=== PATIENT | female | born 1940 | race Caucasian/White ===

== ENCOUNTER 2018-07-10 12:58 | Observation (INO) ==
[2018-07-10 13:35] LABS: Basophils # 0.1 10*3/uL (0.0-0.2); Basophils % 0.7 % (0.0-0.8); Eosinophils # 0.1 10*3/uL (0.0-0.87); Eosinophils % 0.4 % (0.00-10.9); Hematocrit 42.2 VOL% (35.7-47.0); Immature Granulocytes % 0.3 %; Immature Granulocytes Absolute 0.04 #; Lymphocytes # 3.4 10*3/uL (1.4-4.0); Lymphocytes % 29.3 % (21.3-54.2); Mean Corpuscular HGB Conc 33.2 GM/DL (32-36); Mean Corpuscular Hemoglobin 30 PG (27-34); Mean Corpuscular Volume 91.7 FL (87-102); Monocytes # 1.3 10*3/uL (0.11-0.8); Monocytes % 11.1 % (1.7-12.7); Neutrophils # 6.8 10*3/uL (1.4-7.4); Neutrophils % 58.2 % (38.7-73.9); Platelet Count 422 T/CUMM (130-400); Red Cell Distribution Width 13.6 % (9.3-17.3); White Blood Count 11.7 T/CUMM (4-12)
[2018-07-10 13:48] LABS: INR 0.9
[2018-07-10 13:51] LABS: Albumin 3.7 G/DL (3.4-5.0); Bilirubin,Total 0.4 MG/DL (0.2-1.0); Calcium 9.2 MG/DL (8.5-10.1); Potassium 4.1 MMOL/L (3.5-5.1); Total Protein 7.3 G/DL (6.4-8.3)
[2018-07-10] MEDS ORDERED: ONDANSETRON 4 MG/2 ML VIAL IV PRN (16:02)
[2018-07-10] MEDS ORDERED: ACETAMINOPHEN 325 MG TABLET PO PRN (16:02)
[2018-07-10] MEDS: PARoxetine 20 MG TABLET PO SCH (21:30)
[2018-07-10] MEDS: DOCUSATE SODIUM 100 MG CAPSULE PO SCH (21:30)
[2018-07-10] MEDS: APIXABAN 5 MG TABLET PO SCH (21:30)
[2018-07-11 02:38] LABS: Risk Ratio 4.51; VLDL CHOLESTEROL 30.8 MG/DL
[2018-07-11] MEDS ORDERED: METOPROLOL SUCCINATE XL 50 MG TABLET PO SCH (09:00)
[2018-07-11] MEDS: PANTOPRAZOLE 40 MG TABLET PO SCH (09:10)
[2018-07-11] MEDS: DOCUSATE SODIUM 100 MG CAPSULE PO SCH ×2 (09:10→21:01)
[2018-07-11] MEDS: APIXABAN 5 MG TABLET PO SCH ×2 (09:10→21:01)
[2018-07-11] MEDS: ROSUVASTATIN 20 MG TABLET PO SCH (13:12)
[2018-07-11] MEDS: LISINOPRIL 5 MG TABLET PO SCH ×2 (13:12→21:01)
[2018-07-11] MEDS: amLODIPine 10 MG TABLET PO SCH (13:12)
[2018-07-11] MEDS: PARoxetine 20 MG TABLET PO SCH (21:01)
[2018-07-12 08:22] VITALS: BP 122/70
[2018-07-12] MEDS: LISINOPRIL 5 MG TABLET PO SCH (08:57)
[2018-07-12] MEDS: ROSUVASTATIN 20 MG TABLET PO SCH (08:58)
[2018-07-12] MEDS: DOCUSATE SODIUM 100 MG CAPSULE PO SCH (08:58)
[2018-07-12] MEDS: APIXABAN 5 MG TABLET PO SCH (08:58)
[2018-07-12] MEDS: PANTOPRAZOLE 40 MG TABLET PO SCH (08:58)
[2018-07-12] MEDS ORDERED: METOPROLOL SUCCINATE XL 25 MG TABLET PO SCH (09:00)
[2018-07-12] MEDS: amLODIPine 10 MG TABLET PO SCH (11:53)
== END 2018-07-12 12:33 | disposition home or self-care (01) ==
LOC: N.ED 12:58 → N.EDINP 12:58 → N.2W 17:07 → N.TELES 17:32
PROVIDERS: ADMIT Family Medicine; ATTEND Family Medicine

== ENCOUNTER 2018-07-18 12:48 | Inpatient (IN) ==
[2018-07-18] MEDS ORDERED: MAGNESIUM SULF RIDER 2 GM in PREMIX 1 EACH IV ONE (13:04)
[2018-07-18] MEDS ORDERED: ONDANSETRON 4 MG/2 ML VIAL IV PRN (13:04)
[2018-07-18] MEDS ORDERED: DILTIAZEM INJ 100 MG in SODIUM CHLORIDE 0.9% 100 ML IV SCH (13:30)
[2018-07-18] MEDS ORDERED: DILTIAZEM 100 MG VIAL.ADD IV ONE (14:19)
[2018-07-18] MEDS ORDERED: SODIUM CHLORIDE 0.9% 100 ML IV ONE (14:22)
[2018-07-18] MEDS ORDERED: ACETAMINOPHEN 325 MG TABLET PO PRN (14:26)
[2018-07-18] MEDS: SODIUM CHLORIDE 0.45% 1,000 ML IV SCH (15:08)
[2018-07-18 16:10] LABS: Basophils # 0.1 10*3/uL (0.0-0.2); Basophils % 0.7 % (0.0-0.8); Eosinophils # 0.1 10*3/uL (0.0-0.87); Eosinophils % 0.5 % (0.00-10.9); Hematocrit 45.7 VOL% (35.7-47.0); Hemoglobin 15.1 GM/DL (12.0-16.0); Immature Granulocytes % 0.2 %; Immature Granulocytes Absolute 0.03 #; Lymphocytes # 3.9 10*3/uL (1.4-4.0); Lymphocytes % 28.4 % (21.3-54.2); Mean Corpuscular Hemoglobin 30 PG (27-34); Mean Corpuscular Volume 91.6 FL (87-102); Mean Platelet Volume 11.9 FL (9.6-12.0); Monocytes # 1.2 10*3/uL (0.11-0.8); Monocytes % 8.5 % (1.7-12.7); Neutrophils # 8.5 10*3/uL (1.4-7.4); Neutrophils % 61.7 % (38.7-73.9); Platelet Count 477 T/CUMM (130-400); Red Blood Count 4.99 MC/CUMM (3.8-5.5); Red Cell Distribution Width 13.5 % (9.3-17.3); White Blood Count 13.8 T/CUMM (4-12)
[2018-07-18 16:36] LABS: Albumin 4.2 G/DL (3.4-5.0); Bilirubin,Total 0.4 MG/DL (0.2-1.0); Calcium 9.1 MG/DL (8.5-10.1); Osmolality,Calculated 281.4 MOS/KG (273-304); Potassium 3.8 MMOL/L (3.5-5.1); Total Protein 8.2 G/DL (6.4-8.3)
[2018-07-18] MEDS: DOCUSATE SODIUM 100 MG CAPSULE PO SCH (21:38)
[2018-07-18] MEDS: LISINOPRIL 5 MG TABLET PO SCH (21:38)
[2018-07-18] MEDS: PARoxetine 20 MG TABLET PO SCH (21:39)
[2018-07-18] MEDS: APIXABAN 5 MG TABLET PO SCH (21:39)
[2018-07-19 03:56] LABS: Risk Ratio 2.73
[2018-07-19] MEDS: LISINOPRIL 5 MG TABLET PO SCH ×2 (09:56→20:35)
[2018-07-19] MEDS: APIXABAN 5 MG TABLET PO SCH ×2 (09:56→20:35)
[2018-07-19] MEDS: DOCUSATE SODIUM 100 MG CAPSULE PO SCH ×2 (09:56→20:35)
[2018-07-19] MEDS: ROSUVASTATIN 20 MG TABLET PO SCH (09:56)
[2018-07-19] MEDS: PANTOPRAZOLE 40 MG TABLET PO SCH (09:56)
[2018-07-19] MEDS: SODIUM CHLORIDE 0.45% 1,000 ML IV SCH (11:41)
[2018-07-19] MEDS ORDERED: ATENOLOL 25 MG TABLET PO ONE (13:50)
[2018-07-19] MEDS ORDERED: METOPROLOL SUCCINATE XL 25 MG TABLET PO ONE (13:52)
[2018-07-19] MEDS: PARoxetine 20 MG TABLET PO SCH (20:35)
[2018-07-20 05:32] LABS: Basophils # 0.1 10*3/uL (0.0-0.2); Basophils % 0.8 % (0.0-0.8); Eosinophils # 0.2 10*3/uL (0.0-0.87); Eosinophils % 1.4 % (0.00-10.9); Hemoglobin 12.8 GM/DL (12.0-16.0); Immature Granulocytes % 0.3 %; Immature Granulocytes Absolute 0.03 #; Lymphocytes # 3.4 10*3/uL (1.4-4.0); Mean Corpuscular HGB Conc 32.8 GM/DL (32-36); Mean Corpuscular Hemoglobin 30 PG (27-34); Mean Corpuscular Volume 92.6 FL (87-102); Mean Platelet Volume 12.2 FL (9.6-12.0); Monocytes # 1.5 10*3/uL (0.11-0.8); Monocytes % 12.8 % (1.7-12.7); Neutrophils # 6.6 10*3/uL (1.4-7.4); Neutrophils % 55.7 % (38.7-73.9); Platelet Count 413 T/CUMM (130-400); Red Blood Count 4.21 MC/CUMM (3.8-5.5); Red Cell Distribution Width 13.6 % (9.3-17.3); White Blood Count 11.8 T/CUMM (4-12)
[2018-07-20 05:45] LABS: Calcium 8.2 MG/DL (8.5-10.1); Osmolality,Calculated 283.1 MOS/KG (273-304)
[2018-07-20] MEDS ORDERED: METOPROLOL TARTRATE 25 MG TABLET PO SCH (09:00)
[2018-07-20] MEDS: APIXABAN 5 MG TABLET PO SCH ×2 (10:03→21:05)
[2018-07-20] MEDS: ROSUVASTATIN 20 MG TABLET PO SCH (10:04)
[2018-07-20] MEDS: PANTOPRAZOLE 40 MG TABLET PO SCH (10:04)
[2018-07-20] MEDS: DOCUSATE SODIUM 100 MG CAPSULE PO SCH ×2 (10:04→21:05)
[2018-07-20] MEDS: LISINOPRIL 5 MG TABLET PO SCH ×2 (10:04→21:05)
[2018-07-20] MEDS ORDERED: METOPROLOL SUCCINATE XL 25 MG TABLET PO ONE (13:14)
[2018-07-20] MEDS: SODIUM CHLORIDE 0.45% 1,000 ML IV SCH (16:25)
[2018-07-20] MEDS: PARoxetine 20 MG TABLET PO SCH (21:05)
[2018-07-21 05:13] LABS: Calcium 8.7 MG/DL (8.5-10.1); Osmolality,Calculated 281.3 MOS/KG (273-304); Potassium 4.3 MMOL/L (3.5-5.1)
[2018-07-21] MEDS: APIXABAN 5 MG TABLET PO SCH ×2 (08:27→20:20)
[2018-07-21] MEDS: DOCUSATE SODIUM 100 MG CAPSULE PO SCH ×2 (08:27→20:20)
[2018-07-21] MEDS: LISINOPRIL 5 MG TABLET PO SCH ×2 (08:27→20:42)
[2018-07-21] MEDS: PANTOPRAZOLE 40 MG TABLET PO SCH (08:27)
[2018-07-21] MEDS: ROSUVASTATIN 20 MG TABLET PO SCH (08:27)
[2018-07-21] MEDS: METOPROLOL SUCCINATE XL 25 MG TABLET PO SCH (08:28)
[2018-07-21] MEDS: PARoxetine 20 MG TABLET PO SCH (20:20)
[2018-07-22] MEDS: PANTOPRAZOLE 40 MG TABLET PO SCH (08:24)
[2018-07-22] MEDS: DOCUSATE SODIUM 100 MG CAPSULE PO SCH ×2 (08:24→21:07)
[2018-07-22] MEDS: ROSUVASTATIN 20 MG TABLET PO SCH (08:25)
[2018-07-22] MEDS: APIXABAN 5 MG TABLET PO SCH ×2 (08:25→21:07)
[2018-07-22] MEDS: LISINOPRIL 5 MG TABLET PO SCH ×2 (08:25→21:07)
[2018-07-22] MEDS: METOPROLOL SUCCINATE XL 25 MG TABLET PO SCH ×2 (08:25→08:26)
[2018-07-22] MEDS: PARoxetine 20 MG TABLET PO SCH (21:07)
[2018-07-23] MEDS: DOCUSATE SODIUM 100 MG CAPSULE PO SCH ×2 (09:22→21:01)
[2018-07-23] MEDS: METOPROLOL SUCCINATE XL 25 MG TABLET PO SCH (09:23)
[2018-07-23] MEDS: PANTOPRAZOLE 40 MG TABLET PO SCH (09:23)
[2018-07-23] MEDS: APIXABAN 5 MG TABLET PO SCH (09:23)
[2018-07-23] MEDS: LISINOPRIL 5 MG TABLET PO SCH ×2 (09:23→21:01)
[2018-07-23] MEDS: ROSUVASTATIN 20 MG TABLET PO SCH (09:23)
[2018-07-23] MEDS: PARoxetine 20 MG TABLET PO SCH (21:01)
[2018-07-24] MEDS ORDERED: ceFAZolin 1,000 MG in SYRINGE 1 EACH IV ONE (07:59)
[2018-07-24] MEDS ORDERED: ceFAZolin 1,000 MG VIAL IRRIG ONE (07:59)
[2018-07-24 08:14] LABS: Basophils # 0.1 10*3/uL (0.0-0.2); Basophils % 0.8 % (0.0-0.8); Eosinophils # 0.1 10*3/uL (0.0-0.87); Eosinophils % 0.8 % (0.00-10.9); Hematocrit 39.5 VOL% (35.7-47.0); Hemoglobin 13.5 GM/DL (12.0-16.0); Immature Granulocytes % 0.4 %; Immature Granulocytes Absolute 0.04 #; Lymphocytes # 2.5 10*3/uL (1.4-4.0); Lymphocytes % 23.5 % (21.3-54.2); Mean Corpuscular HGB Conc 34.2 GM/DL (32-36); Mean Corpuscular Hemoglobin 31 PG (27-34); Mean Corpuscular Volume 90.6 FL (87-102); Mean Platelet Volume 11.1 FL (9.6-12.0); Monocytes # 1.1 10*3/uL (0.11-0.8); Monocytes % 10.5 % (1.7-12.7); Neutrophils # 6.8 10*3/uL (1.4-7.4); Platelet Count 445 T/CUMM (130-400); Red Blood Count 4.36 MC/CUMM (3.8-5.5); Red Cell Distribution Width 13.4 % (9.3-17.3); White Blood Count 10.6 T/CUMM (4-12)
[2018-07-24 08:44] LABS: Calcium 8.5 MG/DL (8.5-10.1); Osmolality,Calculated 280.3 MOS/KG (273-304); Potassium 3.9 MMOL/L (3.5-5.1)
[2018-07-24] MEDS: LISINOPRIL 5 MG TABLET PO SCH ×2 (09:22→21:23)
[2018-07-24] MEDS: PANTOPRAZOLE 40 MG TABLET PO SCH (09:22)
[2018-07-24] MEDS: ROSUVASTATIN 20 MG TABLET PO SCH (09:23)
[2018-07-24] MEDS: METOPROLOL SUCCINATE XL 25 MG TABLET PO SCH (09:23)
[2018-07-24] MEDS: DOCUSATE SODIUM 100 MG CAPSULE PO SCH ×2 (09:23→21:23)
[2018-07-24 11:41] LABS: Apearance,Urine CLEAR (Clear); Bilirubin,Urine Negative (Negative); Blood, Urine Negative (Negative); Glucose,Urine (UA) Negative (Negative); Ketones,Urine Negative (Negative); Nitrite,Urine Negative (Negative); Protein,Urine Negative; RBC,Urine <1 /HPF (0-4); Urine Color Yellow (Yellow); Urine Specific Gravity 1.011 (1.001-1.035); Urine Urobilinogen < 2.0 EU/DL (0.2-1.0); WBC,Urine 1 /HPF (0-6)
[2018-07-24] MEDS ORDERED: HEPARIN/NACL 0.9% 2 UNITS/ML 500 ML IV ONE (12:23)
[2018-07-24] MEDS ORDERED: LIDOCAINE 1% 20 ML VIAL ONE (12:23)
[2018-07-24] MEDS ORDERED: VANCOMYCIN 500 MG VIAL ONE ×2 (12:24→12:31)
[2018-07-24] MEDS ORDERED: MIDAZOLAM 2 MG/2 ML VIAL ONE ×2 (12:29→12:39)
[2018-07-24] MEDS ORDERED: fentaNYL 100 MCG/2 ML VIAL ONE ×2 (12:30→12:39)
[2018-07-24] MEDS ORDERED: VANCOMYCIN INJ 1,000 MG in SODIUM CHLORIDE 0.9% 250 ML IV ONE ×2 (12:36→22:00)
[2018-07-24] MEDS ORDERED: TISSUE ADHESIVE 1 EACH APPLICATOR TOP ONE (13:05)
[2018-07-24] MEDS ORDERED: oxyCODONE/ACETAMINOPHEN 5-325 MG TABLET PO PRN (13:17)
[2018-07-24] MEDS: ACETAMINOPHEN 325 MG TABLET PO PRN (16:51)
[2018-07-24] MEDS: SOTALOL 80 MG TABLET PO SCH (21:23)
[2018-07-24] MEDS: PARoxetine 20 MG TABLET PO SCH (21:23)
[2018-07-25] MEDS: ACETAMINOPHEN 325 MG TABLET PO PRN ×2 (01:26→10:54)
[2018-07-25 04:16] LABS: Basophils # 0.1 10*3/uL (0.0-0.2); Basophils % 0.6 % (0.0-0.8); Eosinophils # 0.1 10*3/uL (0.0-0.87); Eosinophils % 0.9 % (0.00-10.9); Hematocrit 39.5 VOL% (35.7-47.0); Immature Granulocytes % 0.2 %; Immature Granulocytes Absolute 0.02 #; Lymphocytes # 2.7 10*3/uL (1.4-4.0); Lymphocytes % 25.2 % (21.3-54.2); Mean Corpuscular HGB Conc 32.9 GM/DL (32-36); Mean Corpuscular Hemoglobin 30 PG (27-34); Mean Corpuscular Volume 92.3 FL (87-102); Mean Platelet Volume 11.8 FL (9.6-12.0); Monocytes # 1.2 10*3/uL (0.11-0.8); Monocytes % 11.2 % (1.7-12.7); Neutrophils # 6.7 10*3/uL (1.4-7.4); Neutrophils % 61.9 % (38.7-73.9); Platelet Count 397 T/CUMM (130-400); Red Blood Count 4.28 MC/CUMM (3.8-5.5); Red Cell Distribution Width 13.6 % (9.3-17.3); White Blood Count 10.8 T/CUMM (4-12)
[2018-07-25 04:23] LABS: Calcium 8.9 MG/DL (8.5-10.1); Osmolality,Calculated 282.3 MOS/KG (273-304); Potassium 4.1 MMOL/L (3.5-5.1)
[2018-07-25 04:26] LABS: Calcium 8.8 MG/DL (8.5-10.1); Osmolality,Calculated 280.4 MOS/KG (273-304); Potassium 4.2 MMOL/L (3.5-5.1)
[2018-07-25] MEDS ORDERED: CLINDAMYCIN 300 MG CAPSULE PO SCH (08:00)
[2018-07-25] MEDS: LISINOPRIL 5 MG TABLET PO SCH (08:49)
[2018-07-25] MEDS: ROSUVASTATIN 20 MG TABLET PO SCH (08:49)
[2018-07-25] MEDS: PANTOPRAZOLE 40 MG TABLET PO SCH (08:49)
[2018-07-25] MEDS: SOTALOL 80 MG TABLET PO SCH (08:49)
[2018-07-25] MEDS: DOCUSATE SODIUM 100 MG CAPSULE PO SCH ×2 (08:49→08:51)
[2018-07-25 11:52] VITALS: BP 145/85
== END 2018-07-25 12:10 | disposition home or self-care (01) | DRG 244 ==
LOC: N.TELES → OBSVTOIN 13:15
PROVIDERS: ADMIT Family Medicine; ATTEND Family Medicine

== ENCOUNTER 2022-07-18 21:22 | Inpatient (IN) ==
[2022-07-18] MEDS ORDERED: MORPHINE 2 MG/1 ML SYRINGE IV STA (21:45)
[2022-07-18] MEDS ORDERED: ONDANSETRON 4 MG/2 ML VIAL IV STA (21:45)
[2022-07-18 22:41] LABS: Basophils # 0.1 10*3/uL (0.0-0.2); Basophils % 0.3 % (0.0-0.8); Eosinophils % 0.2 % (0.00-10.9); Hematocrit 39.6 VOL% (35.7-47.0); Immature Granulocytes % 0.6 %; Immature Granulocytes Absolute 0.11 #; Lymphocytes # 2.1 10*3/uL (1.4-4.0); Lymphocytes % 11.6 % (21.3-54.2); Mean Corpuscular HGB Conc 32.8 GM/DL (32-36); Mean Corpuscular Volume 93.2 FL (87-102); Mean Platelet Volume 10.7 FL (9.6-12.0); Monocytes # 1.3 10*3/uL (0.11-0.8); Monocytes % 7.3 % (1.7-12.7); Platelet Count 354 T/CUMM (130-400); Red Blood Count 4.25 MC/CUMM (3.8-5.5); Red Cell Distribution Width 13.4 % (9.3-17.3); White Blood Count 17.9 T/CUMM (4-12)
[2022-07-18 22:51] LABS: PT Patient Result 10.9 SECS (10.1-12.1); Partial Thromboplastin Time 30.7 SECS (23.7-32.9)
[2022-07-18 23:05] LABS: Albumin 3.8 G/DL (3.4-5.0); Bilirubin,Total 0.4 MG/DL (0.20-1.00); Calcium 8.9 MG/DL (8.5-10.1); Osmolality,Calculated 280.5 MOS/KG (273-304); Potassium 3.6 MMOL/L (3.5-5.1); Total Protein 6.7 G/DL (6.4-8.2)
[2022-07-18 23:38] LABS: Bilirubin,Urine Negative (Negative); Blood, Urine Trace mg/dL (Negative); Glucose,Urine (UA) Negative (Negative); Ketones,Urine Negative (Negative); Mucus,Urine Occasional /LPF (Occasional); Nitrite,Urine Negative (Negative); Protein,Urine Negative (Negative); RBC,Urine 1 /HPF (0-4); Urine Appearance Clear (Clear); Urine Color Yellow (Yellow); Urine Specific Gravity 1.025 (1.001-1.035)
[2022-07-18 23:39] LABS: Urine Urobilinogen 0.2 eU/dL (<2.0)
[2022-07-19] MEDS ORDERED: SODIUM CHLORIDE 0.9% 1,000 ML IV SCH (00:06)
[2022-07-19] MEDS ORDERED: ACETAMINOPHEN 325 MG TABLET PO PRN (00:06)
[2022-07-19] MEDS ORDERED: NALOXONE 0.4 MG/ML VIAL IV PRN (00:06)
[2022-07-19] MEDS: ONDANSETRON 4 MG/2 ML VIAL IV PRN (01:38)
[2022-07-19] MEDS: HYDROmorphone 1 MG/1 ML SYRINGE IV PRN (01:41)
[2022-07-19] MEDS: PANTOPRAZOLE 40 MG TABLET PO SCH (08:47)
[2022-07-19] MEDS: amLODIPine 2.5 MG TABLET PO SCH ×2 (08:47→20:52)
[2022-07-19] MEDS: SOTALOL 80 MG TABLET PO SCH ×2 (08:47→20:52)
[2022-07-19] MEDS: DOCUSATE SODIUM 100 MG CAPSULE PO SCH ×2 (08:47→20:52)
[2022-07-19] MEDS: ROSUVASTATIN 20 MG TABLET PO SCH (08:48)
[2022-07-20] MEDS: LACTATED RINGERS 1,000 ML IV SCH ×3 (00:45→16:30)
[2022-07-20] MEDS: ONDANSETRON 4 MG/2 ML VIAL IV PRN (04:23)
[2022-07-20] MEDS: HYDROmorphone 1 MG/1 ML SYRINGE IV PRN (04:24)
[2022-07-20 08:57] LABS: Basophils % 0.2 % (0.0-0.8); Hematocrit 37.3 VOL% (35.7-47.0); Hemoglobin 11.9 GM/DL (12.0-16.0); Immature Granulocytes % 0.6 %; Immature Granulocytes Absolute 0.09 #; Lymphocytes # 2.3 10*3/uL (1.4-4.0); Lymphocytes % 14.4 % (21.3-54.2); Mean Corpuscular HGB Conc 31.9 GM/DL (32-36); Mean Corpuscular Volume 94.4 FL (87-102); Mean Platelet Volume 11.3 FL (9.6-12.0); Monocytes # 2.7 10*3/uL (0.11-0.8); Monocytes % 16.8 % (1.7-12.7); Platelet Count 289 T/CUMM (130-400); Red Blood Count 3.95 MC/CUMM (3.8-5.5); Red Cell Distribution Width 13.8 % (9.3-17.3); White Blood Count 16.1 T/CUMM (4-12)
[2022-07-20] MEDS: PANTOPRAZOLE 40 MG TABLET PO SCH (09:00)
[2022-07-20] MEDS: SOTALOL 80 MG TABLET PO SCH ×2 (09:00→20:38)
[2022-07-20] MEDS: ROSUVASTATIN 20 MG TABLET PO SCH (09:00)
[2022-07-20] MEDS: DOCUSATE SODIUM 100 MG CAPSULE PO SCH ×2 (09:00→20:37)
[2022-07-20] MEDS: amLODIPine 2.5 MG TABLET PO SCH ×2 (09:00→20:38)
[2022-07-20 09:24] LABS: Calcium 8.2 MG/DL (8.5-10.1); Osmolality,Calculated 273.7 MOS/KG (273-304); Potassium 3.8 MMOL/L (3.5-5.1)
[2022-07-20 09:38] LABS: Eosinophils 1 % (0-10); Lymphocytes 13 % (20-55); Nucleated Red Blood Cells 1 /100 WBC (0-5); Platelet Estimate Adequate; Total Cells Counted 100
[2022-07-20] MEDS ORDERED: LIDOCAINE 1% 5 ML VIAL ONE (11:52)
[2022-07-20] MEDS ORDERED: BUPIVACAINE 0.5% 50 ML VIAL ONE (11:52)
[2022-07-20] MEDS ORDERED: DEXAMETHASONE 4 MG/1 ML VIAL ONE (11:52)
[2022-07-20] MEDS ORDERED: fentaNYL 100 MCG/2 ML VIAL ONE (11:53)
[2022-07-20] MEDS ORDERED: CLINDAMYCIN INJ 900 MG/50 ML PREMIX IV ONE (12:41)
[2022-07-20] MEDS ORDERED: MAGNESIUM HYDROXIDE SUSP 30 ML UDCUP PO PRN (12:43)
[2022-07-20] MEDS ORDERED: LIDOCAINE 2% 5 ML VIAL ONE (13:25)
[2022-07-20] MEDS ORDERED: NEOSTIGMINE 10 MG/10 ML VIAL ONE (13:25)
[2022-07-20] MEDS ORDERED: PHENYLEPHRINE 1 MG/10 ML SYRINGE IV ONE (13:25)
[2022-07-20] MEDS ORDERED: SUCCINYLCHOLINE 200 MG/10 ML VIAL ONE (13:25)
[2022-07-20] MEDS ORDERED: propofoL 200 MG/20 ML VIAL IV ONE (13:25)
[2022-07-20] MEDS ORDERED: GLYCOPYRROLATE 0.4 MG/2 ML VIAL ONE (13:25)
[2022-07-20] MEDS ORDERED: BACITRACIN OINT 0.9 GM PACK TOP ONE (13:32)
[2022-07-20] MEDS ORDERED: SEVOFLURANE 1 UNIT/15 MINUTE INH ONE ×2 (13:53)
[2022-07-20] MEDS: CLINDAMYCIN INJ 900 MG/50 ML PREMIX IV SCH (17:17)
[2022-07-21] MEDS: CLINDAMYCIN INJ 900 MG/50 ML PREMIX IV SCH (01:29)
[2022-07-21] MEDS: LACTATED RINGERS 1,000 ML IV SCH (01:35)
[2022-07-21 04:59] LABS: Basophils % 0.1 % (0.0-0.8); Hematocrit 32.5 VOL% (35.7-47.0); Hemoglobin 10.3 GM/DL (12.0-16.0); Immature Granulocytes % 0.4 %; Immature Granulocytes Absolute 0.06 #; Lymphocytes # 1.4 10*3/uL (1.4-4.0); Lymphocytes % 9.5 % (21.3-54.2); Mean Corpuscular HGB Conc 31.7 GM/DL (32-36); Mean Platelet Volume 11.1 FL (9.6-12.0); Monocytes # 2.5 10*3/uL (0.11-0.8); Monocytes % 16.6 % (1.7-12.7); Neutrophils % 73.4 % (38.7-73.9); Platelet Count 262 T/CUMM (130-400); Red Blood Count 3.42 MC/CUMM (3.8-5.5); Red Cell Distribution Width 13.8 % (9.3-17.3); White Blood Count 14.9 T/CUMM (4-12)
[2022-07-21 05:26] LABS: Osmolality,Calculated 274.8 MOS/KG (273-304); Potassium 3.9 MMOL/L (3.5-5.1)
[2022-07-21 05:27] LABS: Lymphocytes 7 % (20-55); Platelet Estimate Adequate; Total Cells Counted 100
[2022-07-21] MEDS: amLODIPine 2.5 MG TABLET PO SCH ×2 (08:07→20:52)
[2022-07-21] MEDS: PANTOPRAZOLE 40 MG TABLET PO SCH (08:07)
[2022-07-21] MEDS: SOTALOL 80 MG TABLET PO SCH ×2 (08:07→20:52)
[2022-07-21] MEDS: ROSUVASTATIN 20 MG TABLET PO SCH (08:07)
[2022-07-21] MEDS: DOCUSATE SODIUM 100 MG CAPSULE PO SCH ×2 (08:08→20:51)
[2022-07-21] MEDS: RIVAROXABAN 10 MG TABLET PO SCH (08:08)
[2022-07-22 05:45] LABS: Basophils % 0.1 % (0.0-0.8); Hematocrit 31.1 VOL% (35.7-47.0); Hemoglobin 9.9 GM/DL (12.0-16.0); Immature Granulocytes % 0.4 %; Immature Granulocytes Absolute 0.07 #; Lymphocytes # 2.3 10*3/uL (1.4-4.0); Lymphocytes % 14.4 % (21.3-54.2); Mean Corpuscular HGB Conc 31.8 GM/DL (32-36); Mean Corpuscular Volume 94.2 FL (87-102); Mean Platelet Volume 10.8 FL (9.6-12.0); Monocytes # 2.5 10*3/uL (0.11-0.8); Monocytes % 15.6 % (1.7-12.7); Neutrophils % 69.5 % (38.7-73.9); Platelet Count 269 T/CUMM (130-400); Red Cell Distribution Width 13.5 % (9.3-17.3); White Blood Count 15.9 T/CUMM (4-12)
[2022-07-22 06:19] LABS: Hypochromia Slight; Lymphocytes 14 % (20-55); Microcytosis Slight; Ovalocytes Slight; Platelet Estimate Adequate; Total Cells Counted 100
[2022-07-22] MEDS: PANTOPRAZOLE 40 MG TABLET PO SCH (09:06)
[2022-07-22] MEDS: ROSUVASTATIN 20 MG TABLET PO SCH (09:06)
[2022-07-22] MEDS: RIVAROXABAN 10 MG TABLET PO SCH (09:06)
[2022-07-22] MEDS: SOTALOL 80 MG TABLET PO SCH (09:06)
[2022-07-22] MEDS: DOCUSATE SODIUM 100 MG CAPSULE PO SCH (09:06)
[2022-07-22] MEDS: amLODIPine 2.5 MG TABLET PO SCH (09:07)
[2022-07-22 11:13] VITALS: BP 98/54
== END 2022-07-22 16:03 | DRG 482 ==
LOC: EDUNIT# → EDBD → N.ED 21:22 → N.3E 23:21
PROVIDERS: ADMIT Family Medicine; ATTEND Family Medicine